=== PATIENT | female | born 1975 | race Hispanic/Latino ===

== ENCOUNTER → 2017-08-21 | Outpatient (REF) | payer OTHER, MEDICAID | LOC: M SFHCLERA 11:50 | PROVIDERS: ATTEND Nurse Practitioner Family | DX: R10.9 Unspecified abdominal pain (principal); M25.50 Pain in unspecified joint; R60.0 Localized edema ==

== ENCOUNTER → 2017-09-12 | Outpatient (REF) | payer OTHER, MEDICAID | LOC: M SFHCLERA 09:36 → M LAB REF 09:36 | PROVIDERS: ATTEND Family Medicine | DX: Z01.419 Encounter for gynecological examination (general) (routine) without abnormal findings (principal); Z11.51 Encounter for screening for human papillomavirus (HPV) ==

== ENCOUNTER → 2017-12-17 | Outpatient (REF) | payer OTHER, MEDICAID | LOC: M SFHCLERA 15:06 | DX: E55.9 Vitamin D deficiency, unspecified (principal) ==

== ENCOUNTER → 2017-12-18 | Outpatient (REF) | payer OTHER, MEDICAID ==
[2017-12-18 11:52] LABS: TOTAL 25(OH) VITAMIN D 27.7 NG/ML (30.0-100.0)
== END ==
LOC: M SFHCLERA 09:01
DX: E55.9 Vitamin D deficiency, unspecified (principal)
CPT/HCPCS: 82306

== ENCOUNTER → 2018-09-30 | Outpatient (CLI) | payer OTHER, MEDICAID | LOC: M RAD 08:24 | DX: Z12.31 Encounter for screening mammogram for malignant neoplasm of breast (principal); Z80.41 Family history of malignant neoplasm of ovary | CPT/HCPCS: 77067 ==

== ENCOUNTER → 2018-11-18 | Outpatient (REF) | payer OTHER, MEDICAID | LOC: M SFHCLERA 08:48 | PROVIDERS: ATTEND Family Medicine | DX: E55.9 Vitamin D deficiency, unspecified (principal) | CPT/HCPCS: 82306; G0463 ==

== ENCOUNTER → 2020-01-25 | Outpatient (CLI) | payer OTHER, MEDICAID ==
--- NOTE | 2020-01-26 06:58 | REP ---
REASON: Pre-employment examination. Scoliosis series was ordered and performed on a 45-year-old patient. Examination was obtained standing. AP and lateral supposedly erect and supine exams were obtained; however, the images are not labeled as to whether they have been obtained erect or supine. In addition, scoliosis series consists of AP views only with exclusion of lateral views, which were obtained today. There is a slight dextroconvex thoracic curve measured from the superior endplate of T5 to the superior endplate of T9 using Sanon's method. There is a levoconvex thoracolumbar curve measured from the superior endplate of T8 to the superior endplate of L4 of 9 degrees using Sanon's method. IMPRESSION: Spinal curves as described above of doubtful significance due to the patient's age of 45 years. Electronically Signed by Pravin Cunningham DO 01/26/2020 08:47 A
== END ==
LOC: M LRY 10:19
PROVIDERS: ATTEND Family Medicine
DX: Z02.1 Encounter for pre-employment examination (principal)
CPT/HCPCS: 72082; G0463

== ENCOUNTER → 2020-01-27 | Outpatient (REF) | payer OTHER, MEDICAID | LOC: M SFHCLERA 15:53 | PROVIDERS: ATTEND Family Medicine | DX: Z12.4 Encounter for screening for malignant neoplasm of cervix (principal); R87.610 Atypical squamous cells of undetermined significance on cytologic smear of cervix (ASC-US) | CPT/HCPCS: 87624; G0123; G0463 ==

== ENCOUNTER → 2020-07-20 | Outpatient (CLI) | payer OTHER, MEDICAID ==
[2020-07-22 07:08] LABS: HERPES ZOSTER, VARICELLA IgG 1013 index (Immune >165); MUMPS VIRUS IgG ANTIBODY 53.9 AU/mL (Immune >10.9); RUBEOLA IgG ANTIBODY 56.6 AU/mL (Immune >16.4)
== END ==
LOC: M LAB 16:12
PROVIDERS: ATTEND Family Medicine
DX: Z02.1 Encounter for pre-employment examination (principal)

== ENCOUNTER → 2020-10-01 | Outpatient (CLI) | payer SELFPAY | LOC: M LABSMTC 10:32 | PROVIDERS: ATTEND Pediatrics | DX: Z20.828 Contact with and (suspected) exposure to other viral communicable diseases (principal) ==

== ENCOUNTER → 2020-11-06 | Outpatient (CLI) | payer SELFPAY | LOC: M LABSMTC 08:33 | PROVIDERS: ATTEND Pediatrics | DX: Z20.822 Contact with and (suspected) exposure to COVID-19 (principal) ==